=== PATIENT | female | born 1945 | race Caucasian/White ===

== ENCOUNTER 2016-09-16 22:50 | Emergency (ER) | payer MEDICARE, BC ==
--- NOTE | 2016-09-17 02:11 | ER ---
ADMIT: 09/16/2016 RM/LOC: ER [facility] MR#: [id number] [place], [place] [id number] [place] [address] [address] Emergency Room Report SEX: F AGE: 70 : 1945 DATE: 09/16/2016 HISTORY OF PRESENT ILLNESS: The patient is a 70-year-old female with a past medical history of dementia, esophageal pathology, came to the ER with chief complaint of questionable overdose on Seroquel. Per spouse, he believes that he could have given Seroquels two times, each time 300 mg instead of once today. The patient states the 1st time was about 4 hours ago and the next time was about 1-1/2 hours ago. The patient complains of mild dizziness and denies any chest pain, shortness of breath, or headaches. The patient has no problem with the balance, sensory, or motor. PHYSICAL EXAMINATION: VITAL SIGNS: The patient has stable vitals. GENERAL: In no obvious pain or distress. HEAD and NECK: Normal. CHEST: Clear. HEART: Normal heart sounds. ABDOMEN: Soft. NEUROLOGICAL: Normal motor and sensory and the rest of neuro exam is normal. The patient was observed, did not develop any new symptoms. The patient has stable vitals and can be discharged to home with return precautions and follow up with the primary care doctor. Spouse states that they live about 4 minutes away from the hospital and they can always come back if there are any new symptoms and agreed with the plan. Mike Pereira MD/ julián JOB #: [id number] CC: Mike Pereira MD, Attending Physician Aspen Virgen MD, Family Physician
== END 2016-09-16 23:56 | disposition home or self-care (01) ==
LOC: ER 22:50
DX: T43.591A Poisoning by other antipsychotics and neuroleptics, accidental (unintentional), initial encounter (principal); G30.9 Alzheimer's disease, unspecified; F02.80 Dementia in other diseases classified elsewhere, unspecified severity, without behavioral disturbance, psychotic disturbance, mood disturbance, and anxiety; Z90.710 Acquired absence of both cervix and uterus; Z90.49 Acquired absence of other specified parts of digestive tract; Z88.1 Allergy status to other antibiotic agents; Z88.2 Allergy status to sulfonamides